=== PATIENT | male | born 1985 | race Caucasian/White ===

== ENCOUNTER 2019-04-10 08:17 | Emergency (ER) | payer SELFPAY ==
[2019-04-10 10:32] VITALS: BP 151/87
--- NOTE | 2019-04-10 10:50 | ER Document Report ---
Entered by TATI THIBODEAUX SCRIBE 04/10/19 1013 Acting as scribe for:ANDEEM ROGERS MD ED Oral Problem - General Chief Complaint: Dental Injury Stated Complaint: TOOTH PAIN Time Seen by Provider: 04/10/19 10:09 Mode of Arrival: Ambulatory Information source: Patient Notes: This 33 year old male that presents to the emergency department today with complaints of dental pain. Patient states that he was eating prior to arrival and felt his back right upper molar crack. Patient states that he is being seen by a dentist in [place], [place] who plans to remove all of his wisdom teeth but he did not have the money at the time. TRAVEL OUTSIDE OF THE [place] IN LAST 30 DAYS: No - Related Data Allergies/Adverse Reactions: No Known Allergies Allergy (Verified 04/10/19 08:39) Past Medical History - General Information source: Patient - Social History Smoking Status: Never Smoker Cigarette use (# per day): No Chew tobacco use (# tins/day): No Frequency of alcohol use: None Drug Abuse: None Lives with: Family Family History: Reviewed & Not Pertinent Patient has suicidal ideation: No Patient has homicidal ideation: No Past Surgical History: Reports: Hx Tonsillectomy - Immunizations Hx Diphtheria, Pertussis, Tetanus Vaccination: Yes Review of Systems - Review of Systems Constitutional: No symptoms reported EENT: See HPI, Other - dental pain Cardiovascular: No symptoms reported Respiratory: No symptoms reported Gastrointestinal: No symptoms reported Genitourinary: No symptoms reported Male Genitourinary: No symptoms reported Musculoskeletal: No symptoms reported Skin: No symptoms reported Hematologic/Lymphatic: No symptoms reported Neurological/Psychological: No symptoms reported -: Yes All other systems reviewed and negative Physical Exam - Vital signs Vitals: Temp Pulse Resp BP Pulse Ox 97.9 F 103 H 18 155/83 H 98 04/10/19 08:33 04/10/19 08:33 04/10/19 08:33 04/10/19 08:33 04/10/19 08:33 - Notes Notes: Physical Exam: General: Alert, appears well. HEENT: Normocephalic. Atraumatic. PERRLA. Extraocular movements intact. Oropharynx clear. Right third molar is fractured below the gum line. There is no gum swelling. Mild surrounding tenderness with palpation. Neck: Supple. Respiratory: No respiratory distress. Abdominal: Normal Inspection. No distension. Extremities: Moves all four extremities. Neurological: Normal cognition. AAOx4. Normal speech. Psychological: Normal affect. Normal Mood. Skin: Warm. Dry. Normal color. Course - Vital Signs Vital signs: Temp Pulse Resp BP Pulse Ox 97.4 F 102 H 16 151/87 H 98 04/10/19 10:31 04/10/19 10:31 04/10/19 10:31 04/10/19 10:31 04/10/19 10:31 Discharge - Discharge Clinical Impression: Dental decay Fractured tooth Qualifiers: Encounter type: initial encounter Fracture type: closed Qualified Code(s): S02.5XXA - Fracture of tooth (traumatic), initial encounter for closed fracture Condition: Stable Disposition: HOME, SELF-CARE Additional Instructions: Toothache Your pain is due to dental decay. The tooth must be removed in order for you to feel better. You will, therefore, be referred to a dentist. Severe swelling or drainage around a tooth usually means a deep dental abscess. This also requires evaluation and treatment by the dentist, but antibiotics may be prescribed while awaiting dental treatment. You should be rechecked immediately if you develop major swelling of the face, increasing pain, a lump in the jaw or gums, headache, or fever. Take the medication as prescribed. Take ibuprofen or Aleve for pain control. Follow-up with your dentist to have the tooth removed. RETURN TO THE EMERGENCY ROOM IF ANY NEW OR WORSENING SYMPTOMS. Prescriptions: Penicillin V Potassium [Penicillin Vk 500 mg Tablet] 500 mg PO QID #28 tablet Scribe Attestation: 04/10/19 10:15 I personally performed the services described in the documentation, reviewed and edited the documentation which was dictated to the scribe in my presence, and it accurately records my words and actions. I personally performed the services described in the documentation, reviewed and edited the documentation which was dictated to the scribe in my presence, and it accurately records my words and actions.
== END 2019-04-10 10:35 | disposition home or self-care (01) ==
LOC: ER 08:17
DX: S02.5XXA Fracture of tooth (traumatic), initial encounter for closed fracture (principal); X58.XXXA Exposure to other specified factors, initial encounter; K02.9 Dental caries, unspecified
CPT/HCPCS: 99282